=== PATIENT | male | born 1960 | race Two or more races ===

== ENCOUNTER 2022-07-23 06:21 | Day surgery (SDC) | payer OTHER ==
[~2022-07-23] VITALS: Ht 175.3 cm; Wt 86.2 kg
[~2022-07-23 06:21] MED LIST: ARICEPT5 MG PO; CARVEDILOL12.5 MG; COZAAR25 MG PO; FOLIC ACID0.8 M1 PO; HUMULIN 70100 UNIT/1; METFORMIN HCL500 M3 PO; PEPCID AC20 MG PO; ZETIA10 MG PO
[2022-07-23] MEDS ORDERED: OXYC1TAB9 PO (12:22)
== END 2022-07-23 16:45 | disposition home or self-care (01) ==
LOC: CIR.AMB 06:21
PROVIDERS: ATTEND Surgery
DX: K60.3 Anal fistula (principal); K62.89 Other specified diseases of anus and rectum; K62.5 Hemorrhage of anus and rectum; I10 Essential (primary) hypertension; Z95.810 Presence of automatic (implantable) cardiac defibrillator; E11.40 Type 2 diabetes mellitus with diabetic neuropathy, unspecified; Z79.4 Long term (current) use of insulin